=== PATIENT | male | born 1950 | race Caucasian/White ===

== ENCOUNTER 2018-02-24 19:23 | Observation (INO) | payer MEDICARE, BC ==
[2018-02-24] MEDS ORDERED: KETOROLAC 30 MG/ML 1 ML VIAL IM STA (19:58)
[2018-02-24] MEDS ORDERED: DIAZEPAM 5 MG/ML 2 ML INJ IM ONE (19:58)
--- NOTE | 2018-02-24 20:04 | ED ---
Back Pain HPI - General Chief Complaint: Back Pain/Injury Stated Complaint: Back pain Time Seen by Provider: 02/24/18 19:27 Source: patient, EMS Limitations: no limitations - History of Present Illness Initial Comments: 67-year-old male patient presents to the emergency department today for evaluation of increased lower back pain. Patient states that he does have a history of back problems which is usually well-managed with his Ultram. Patient states that over the last 4-5 days he has had a significant increase in the pain. Patient states that today the pain became so bad that he was unable to move. Patient states with the slightest movement the pain in his back would increase to a point he couldn't stand. Patient states that it was so bad to call EMS to bring him here. Patient states he did get fentanyl in the ambulance which did help somewhat but not much. Patient denies any radiation of the pain down his legs. Denies any numbness or tingling to his lower extremities. Denies any saddle anesthesia. He denies any loss of bowel or bladder control however he does have a manual sphincter for urination. States that he has had some hematuria today but this does occur occasionally due to his prostate cancer. He denies any known injury to the back. Denies any event that caused an increase in his back pain. States he did see his primary care physician a few days ago did give him an injection of Toradol and a muscle relaxer which improved the pain for a short time. States that his primary care did calm and a prescription of Robaxin but has not arrived yet. Patient denies any recent rash, fever, chills, shortness breath, chest pain, abdominal pain, nausea, vomiting, diarrhea, constipation, dizziness, weakness, hematuria, dysuria, urinary urgency, urinary frequency, headache, visual changes, or any other complaints. - Related Data Home Medications Medication Instructions Recorded Confirmed Clopidogrel [Plavix] 75 mg PO DAILY 10/01/14 02/24/18 Loratadine [Claritin] 10 mg PO DAILY 10/01/14 02/24/18 Pantoprazole Sodium [Protonix] 40 mg PO DAILY 10/01/14 02/24/18 Aspirin 81 mg PO DAILY 05/06/16 02/24/18 Atenolol/Chlorthalidone 1 tab PO DAILY 05/06/16 02/24/18 [Atenolol-Chlorthalidone 50-25] Atorvastatin [Lipitor] 40 mg PO DAILY 02/24/18 02/24/18 Cholecalciferol [Vitamin D3] 1,000 unit PO DAILY 02/24/18 02/24/18 Docusate [Colace] 100 mg PO BID 02/24/18 02/24/18 Escitalopram [Lexapro] 20 mg PO DAILY 02/24/18 02/24/18 Triamterene/Hydrochlorothiazid 1 tab PO DAILY 02/24/18 02/24/18 [Triamterene-Hctz 37.5-25 mg Tb] Allergies Allergy/AdvReac Type Severity Reaction Status Date / Time codeine Allergy Nausea Verified 02/24/18 20:17 walnuts Allergy Unknown Uncoded 02/24/18 19:30 Review of Systems ROS Statement: Those systems with pertinent positive or pertinent negative responses have been documented in the HPI. ROS Other: All systems not noted in ROS Statement are negative. Past Medical History Past Medical History: Cancer, CVA/TIA, GERD/Reflux, Hyperlipidemia, Hypertension , Myocardial Infarction (non Q-wave) Additional Past Medical History / Comment(s): prostate, History of Any Multi-Drug Resistant Organisms: None Reported Past Surgical History: Back Surgery, Prostate Surgery Additional Past Surgical History / Comment(s): urinary schincter replacemnt Past Psychological History: No Psychological Hx Reported Smoking Status: Never smoker Past Alcohol Use History: None Reported - Past Family History Mother History Unknown: Yes Additional Family Medical History / Comment(s): Patient adopted - unknown history from biological mother Father History Unknown: Yes Additional Family Medical History / Comment(s): Patient adopted - unknown history from biological father Sister(s) History Unknown: Yes Additional Family Medical History / Comment(s): Adopted sister - not biological relation Daughter(s) Additional Family Medical History / Comment(s): Daughter had pericarditis - had to have oepn heart surgery at 26 and have all valves replaced due to sepsis. Full health now General Exam Limitations: no limitations General appearance: alert, in no apparent distress, other (This is a well- developed, well-nourished adult male patient in no acute distress. Vital signs upon presentation are temperature 97.9F, pulse 63, respirations 16, blood pressure 138/60, pulse ox 99% on room air.) Eye exam: Present: normal appearance, PERRL, EOMI. Absent: scleral icterus, conjunctival injection, periorbital swelling ENT exam: Present: normal exam, normal oropharynx, mucous membranes moist Respiratory exam: Present: normal lung sounds bilaterally. Absent: respiratory distress, wheezes, rales, rhonchi, stridor Cardiovascular Exam: Present: regular rate, normal rhythm, normal heart sounds. Absent: systolic murmur, diastolic murmur, rubs, gallop, clicks GI/Abdominal exam: Present: soft, normal bowel sounds. Absent: distended, tenderness, guarding, rebound, rigid Neurological exam: Present: alert, oriented X3, CN II-XII intact Psychiatric exam: Present: normal affect, normal mood Skin exam: Present: warm, dry, intact, normal color. Absent: rash Course Vital Signs 02/24/18 02/24/18 02/24/18 19:25 21:41 23:16 Temperature 97.9 F Pulse Rate 63 55 L 55 L Pulse Rate [ Right Supine Radial] Respiratory 16 16 16 Rate Blood Pressure 138/68 113/63 109/64 Blood Pressure [Left Arm] O2 Sat by Pulse 99 98 96 Oximetry 02/25/18 02/25/18 00:00 00:21 Temperature 97.8 F Pulse Rate Pulse Rate [ 60 79 Right Supine Radial] Respiratory 14 17 Rate Blood Pressure Blood Pressure 112/60 [Left Arm] O2 Sat by Pulse 92 L Oximetry Medical Decision Making - Medical Decision Making 67 old male patient presented to the emergency department today for complaints of increased low back pain. Prior to arrival patient was having difficulty moving at all due to a sudden increase in pain with any type of movement. Physical examination was relatively unremarkable. Patient had no vertebral tenderness no paraspinal tenderness. Urinalysis is obtained and showed no evidence of blood. Patient's pain was all across the lower back not center anyone flank. CT of the lumbar spine was obtained and showed some mild degenerative changes but no significant findings. There was concern for possibly left enlarged ureter however patient's urinalysis is not reflect this and this could be physiologic. Patient was given medication here in the emergency department was feeling better. Once he got up to start getting dressed and moved around a little bit his back started to hurt again and again had difficulty with mobility. At this time patient does not feel comfortable being discharged home. We will admit to the hospital for intractable low back pain. We will consult physical therapy and provide pain management. He'll be admitted to Dr. Luis. - Lab Data Result diagrams: 02/24/18 22:56 02/24/18 22:56 Lab Results 02/24/18 02/24/18 02/24/18 Range/Units 20:16 22:56 22:56 WBC 8.8 (3.8-10.6) k/uL RBC 4.31 (4.30-5.90) m/uL Hgb 13.6 (13.0-17.5) gm/dL Hct 39.7 (39.0-53.0) % MCV 91.9 (80.0-100.0) fL MCH 31.5 (25.0-35.0) pg MCHC 34.3 (31.0-37.0) g/dL RDW 12.8 (11.5-15.5) % Plt Count 243 (150-450) k/uL Neutrophils % 76 % Lymphocytes % 16 % Monocytes % 6 % Eosinophils % 0 % Basophils % 0 % Neutrophils # 6.6 (1.3-7.7) k/uL Lymphocytes # 1.4 (1.0-4.8) k/uL Monocytes # 0.6 (0-1.0) k/uL Eosinophils # 0.0 (0-0.7) k/uL Basophils # 0.0 (0-0.2) k/uL Sodium 141 (137-145) mmol/L Potassium 3.7 (3.5-5.1) mmol/L Chloride 97 L (98-107) mmol/L Carbon Dioxide 29 (22-30) mmol/L Anion Gap 15 mmol/L BUN 40 H (9-20) mg/dL Creatinine 1.20 (0.66-1.25) mg/dL Est GFR (CKD-EPI)AfAm 73 (>60 ml/min/1.73 sqM) Est GFR (CKD-EPI)NonAf 63 (>60 ml/min/1.73 sqM) Glucose 137 H (74-99) mg/dL Calcium 9.8 (8.4-10.2) mg/dL Total Bilirubin 0.2 (0.2-1.3) mg/dL AST 20 (17-59) U/L ALT 35 (21-72) U/L Alkaline Phosphatase 85 (38-126) U/L Total Protein 6.6 (6.3-8.2) g/dL Albumin 4.4 (3.5-5.0) g/dL Urine Color Yellow Urine Appearance Clear (Clear) Urine pH 7.0 (5.0-8.0) Ur Specific [place] 1.022 (1.001-1.035) Urine Protein Negative (Negative) Urine Glucose (UA) Negative (Negative) Urine Ketones Negative (Negative) Urine Blood Negative (Negative) Urine Nitrite Negative (Negative) Urine Bilirubin Negative (Negative) Urine Urobilinogen <2.0 (<2.0) mg/dL Ur Leukocyte Esterase Negative (Negative) - Radiology Data Radiology results: report reviewed, image reviewed CT of the lumbar spine was performed without contrast. Report was reviewed in its entirety. Impression by Dr. Corado shows mild lateral recess stenosis L4 to 5. Mild multilevel spondylosis. No fracture seen. The proximal left ureter is slightly increased compared to old computed tomography scan of 2013. Is not clear if there is an obstruction since entire ureter is not included in the mid left ureter is not dilated. Disposition Clinical Impression: Intractable back pain Disposition: ADMITTED IP TO [facility] Condition: Serious Decision to Admit Reason: Admit from EC Decision Date: 02/24/18 Decision Time: 22:58
[2018-02-24 20:28] LABS: Appearance,Urine Clear (Clear); Bilirubin,Urine Negative (Negative); Blood,Urine Negative (Negative); Color,Urine Yellow; Glucose,Urine (UA) Negative (Negative); Ketones,Urine Negative (Negative); Leukocyte Esterase,Urine Negative (Negative); Nitrite,Urine Negative (Negative); Protein,Urine Negative (Negative); Specific Gravity,Urine 1.022 (1.001-1.035); Urobilinogen,Urine <2.0 mg/dL (<2.0)
--- NOTE | 2018-02-24 20:42 | CT ---
EXAMINATION TYPE: CT lumbar spine wo con DATE OF EXAM: 02/24/2018 8:33 PM COMPARISON: NONE HISTORY: Low back pain. No known injury. CT DLP: 1279.6 mGycm Automated exposure control for dose reduction was used. Unenhanced CT of the lumbar spine was performed. Bone and soft tissue window settings are submitted as well as coronal and sagittal reconstructions. Lumbar vertebra have fairly normal alignment. There is narrowing of disc spaces throughout the lumbar spine and more noticeable at L5-S1. There is no lumbar paraspinal mass. There is no compression frac ture. There is anterior spurring of the endplates throughout the lower thoracic and entire lumbar spi ne. The posterior elements are intact. There is some facet arthropathy at L4-5 and mild lateral reces s stenosis. Sacroiliac joints are intact. IMPRESSION: Mild lateral recess stenosis at L4-5. Mild multilevel spondylosis. No fracture seen. The proximal left ureter is slightly increased compared to old CT scan of 03/12/2014. It is not clear if there is an obstruction since the entire ureter is not included and the mid left ureter is not dil ated.
[2018-02-24] MEDS ORDERED: MORPHINE SULFATE 2 MG/ML SYRINGE IM STA (21:13)
[2018-02-24] MEDS ORDERED: DIAZEPAM 5 MG/ML 2 ML INJ IVP PRN (22:38)
[2018-02-24] MEDS ORDERED: methylPREDNISolone SOD SUCCI 125 MG/2 ML VIAL IV STA (22:39)
[2018-02-24] MEDS ORDERED: NALOXONE 0.4 MG/ML 1 ML VIAL IV PRN (22:55)
[2018-02-24 23:08] LABS: Basophils % (A) 0 %; Eosinophils % (A) 0 %; HCT 39.7 % (39.0-53.0); HGB 13.6 gm/dL (13.0-17.5); Lymphocytes # (A) 1.4 k/uL (1.0-4.8); Lymphocytes % (A) 16 %; MCH 31.5 pg (25.0-35.0); MCHC 34.3 g/dL (31.0-37.0); MCV 91.9 fL (80.0-100.0); Mean Platelet Volume 7.5; Monocytes # (A) 0.6 k/uL (0-1.0); Monocytes % (A) 6 %; Neutrophils # (A) 6.6 k/uL (1.3-7.7); Neutrophils % (A) 76 %; Platelet Count 243 k/uL (150-450); RBC 4.31 m/uL (4.30-5.90); RDW 12.8 % (11.5-15.5); WBC 8.8 k/uL (3.8-10.6)
[2018-02-24 23:18] LABS: Albumin 4.4 g/dL (3.5-5.0); Calcium 9.8 mg/dL (8.4-10.2); Potassium 3.7 mmol/L (3.5-5.1); Total Bilirubin 0.2 mg/dL (0.2-1.3); Total Protein 6.6 g/dL (6.3-8.2)
[2018-02-25] MEDS ORDERED: KETOROLAC 30 MG/ML 1 ML VIAL IVP SCH
[2018-02-25 01:39] VITALS: BMI 29.4
[2018-02-25] MEDS: MORPHINE SULFATE 2 MG/ML SYRINGE IVP PRN ×2 (09:12→14:49)
[2018-02-25] MEDS ORDERED: CHLORTHALIDONE 25 MG TAB PO SCH (11:45)
[2018-02-25] MEDS ORDERED: ASPIRIN 81 MG PO SCH (12:00)
[2018-02-25] MEDS: PANTOPRAZOLE 40 MG TABLET PO SCH (12:15)
[2018-02-25] MEDS: ESCITALOPRAM 20 MG TAB PO SCH (12:15)
[2018-02-25] MEDS: ATENOLOL 50 MG TAB PO SCH (12:16)
[2018-02-25] MEDS: CLOPIDOGREL 75 MG TAB PO SCH (12:16)
[2018-02-25] MEDS: TRIAMTERENE-HCTZ 37.5-25MG 1 EACH TAB PO SCH (12:16)
[2018-02-25] MEDS: LORATADINE 10 MG TAB PO SCH (12:17)
[2018-02-25] MEDS ORDERED: HYDROcodone/APAP 5-325MG 1 EACH TAB PO PRN (16:22)
--- NOTE | 2018-02-25 16:27 | P.CNOR ---
History of Present Illness - [facility] Consult date: 02/25/18 Consult reason: low back pain History of present illness: The patient is a 67-year-old male who presented to the hospital yesterday with intractable low back pain. He has a history of prostate cancer, [place], stroke, hyperlipidemia, and hypertension. He states the back pain started approximately 5 days ago and he saw his primary care physician who gave him Toradol and the pain seemed to improve. Until yesterday, he states that he was trying to stand up from the chair and his back locked up and he is unable to move. He was transported to the hospital via EMS. He was given IV steroids and pain medication in the ER and still was unable to ambulate. He was admitted to observation for pain control and further workup. A lumbar CT was obtained. The patient does have a history of prostate cancer that was diagnosed 2 years ago. He underwent surgery, radiation treatments, and hormone therapy by [facility]. He is closely being monitored by [facility]. The patient takes Ultram at home on a regular basis. Today, he denies bilateral leg weakness, numbness or tingling down his legs. He denies fever, chills, rigors, shortness of breath and chest pain. Review of Systems Constitutional: Denies chills, Denies fatigue, Denies fever Cardiovascular: Denies chest pain, Denies shortness of breath Respiratory: Denies cough Musculoskeletal: Reports low back pain Past Medical History Past Medical History: Cancer, CVA/TIA, GERD/Reflux, Hyperlipidemia, Hypertension , Myocardial Infarction (non Q-wave) Additional Past Medical History / Comment(s): prostate, Last Myocardial Infarction Date:: 1993 History of Any Multi-Drug Resistant Organisms: None Reported Past Surgical History: Back Surgery, Prostate Surgery Additional Past Surgical History / Comment(s): urinary schincter replacemnt Past Anesthesia/Blood Transfusion Reactions: No Reported Reaction Past Psychological History: No Psychological Hx Reported Smoking Status: Never smoker Past Alcohol Use History: None Reported - Past Family History Mother History Unknown: Yes Additional Family Medical History / Comment(s): Patient adopted - unknown history from biological mother Father History Unknown: Yes Additional Family Medical History / Comment(s): Patient adopted - unknown history from biological father Sister(s) History Unknown: Yes Additional Family Medical History / Comment(s): Adopted sister - not biological relation Daughter(s) Additional Family Medical History / Comment(s): Daughter had pericarditis - had to have oepn heart surgery at 26 and have all valves replaced due to sepsis. Full health now Medications and Allergies Home Medications Medication Instructions Recorded Confirmed Type Clopidogrel [Plavix] 75 mg PO DAILY 10/01/14 02/24/18 History Loratadine [Claritin] 10 mg PO DAILY 10/01/14 02/24/18 History Pantoprazole Sodium [Protonix] 40 mg PO DAILY 10/01/14 02/24/18 History Aspirin 81 mg PO DAILY 05/06/16 02/24/18 History Atenolol/Chlorthalidone 1 tab PO DAILY 05/06/16 02/24/18 History [Atenolol-Chlorthalidone 50-25] Atorvastatin [Lipitor] 40 mg PO DAILY 02/24/18 02/24/18 History Cholecalciferol [Vitamin D3] 1,000 unit PO DAILY 02/24/18 02/24/18 History Docusate [Colace] 100 mg PO BID 02/24/18 02/24/18 History Escitalopram [Lexapro] 20 mg PO DAILY 02/24/18 02/24/18 History Triamterene/Hydrochlorothiazid 1 tab PO DAILY 02/24/18 02/24/18 History [Triamterene-Hctz 37.5-25 mg Tb] Allergies Allergy/AdvReac Type Severity Reaction Status Date / Time codeine Allergy Nausea Verified 02/24/18 20:17 walnuts Allergy Severe Anaphylaxis Uncoded 02/25/18 03:41 Physical Examination The patient was seen and evaluated at bedside today. He is alert and oriented x3. Pain is reasonably controlled. Abdomen is soft and nontender. Dorsiflexion , plantarflexion, extensor hallucis longus positive sustaining bilaterally. Positive straight leg raise on the left. Pain to palpation to the left lower back along the L4-L5-S1 level with radiation into the left buttock. Calves are soft and nontender. Non-tender hips and knees bilaterally. The patient has full foot and ankle motion without difficulty. Patient's bilateral lower extremities are neurovascular intact. Results - Labs Labs: Abnormal Lab Results - Last 24 Hours (Table) 02/24/18 Range/Units 22:56 Chloride 97 L (98-107) mmol/L BUN 40 H (9-20) mg/dL Glucose 137 H (74-99) mg/dL H & H 02/24/18 Range/Units 22:56 Hgb 13.6 (13.0-17.5) gm/dL Hct 39.7 (39.0-53.0) % Result Diagrams: 02/24/18 22:56 02/24/18 22:56 - Diagnostic results CT Scan - lumbar: image reviewed (CT obtained 02/24/2018 reveal mild spondylosis throughout the lumbar spine (more so in the L5-S1 area) and mild stenosis at L4- 5) Assessment and Plan (1) Intractable back pain Current Visit: Yes Status: Acute Code(s): M54.9 - DORSALGIA, UNSPECIFIED SNOMED Code(s): 774906457 (2) Spondylosis of lumbar spine Current Visit: Yes Status: Acute Code(s): M47.816 - SPONDYLOSIS W/O MYELOPATHY OR RADICULOPATHY, LUMBAR REGION SNOMED Code(s): 439977418 Plan: The clinical and CT findings were discussed with the patient the patient's at the bedside. We are recommending IV Solu-Medrol and pain control. Continue physical therapy as tolerated. If the patient fails to improve, an MRI may be warranted. The patient may be discharged home once pain is controlled and he is able to ambulate safely. He may follow up with Dr. Curry on an outpatient basis as needed.
[2018-02-25] MEDS: methylPREDNISolone SOD SUCCI 125 MG/2 ML VIAL IV SCH (18:16)
[2018-02-25] MEDS ORDERED: CALCIUM CARBONATE 500 MG CHEWABLE PO PRN (18:38)
[2018-02-25] MEDS ORDERED: ONDANSETRON 4 MG/2 ML VIAL IVP PRN (18:38)
[2018-02-25] MEDS ORDERED: TEMAZEPAM 15 MG CAP PO PRN (18:38)
[2018-02-25] MEDS ORDERED: ALPRAZolam 0.25 MG TAB PO PRN (18:38)
[2018-02-25 19:39] VITALS: RESP 16; TEMP 97.8
--- NOTE | 2018-02-25 19:39 | HP ---
HISTORY AND PHYSICAL DATE OF ADMISSION: 02/24/2018 DATE OF SERVICE: 02/25/2018 PRESENTING COMPLAINT: Low back pain. HISTORY OF PRESENTING COMPLAINT: This is a pleasant 67-year-old patient of Dr. Flores whose chronic stable medical conditions include GERD, hypertension, hyperlipidemia, previous [place]. The patient has had low back pain for a long time and does use Ultram. Five days ago he started having increasing pain in the lumbar area, first to one side, then it became more across. There was no change in the bowel or urine. There was no fever, chills. No acute injury. Patient started having episodes where he would stand up and he felt as if he was freezing in terms of bending or moving and decided to come down to the ER. The patient did have a lumbar CT scan. Dr. Curry was consulted earlier this morning. Patient was started on IV Solu-Medrol. REVIEW OF SYSTEMS: CONSTITUTIONAL: None. HEENT: None. RESPIRATORY: None. CARDIOVASCULAR: None. GASTROINTESTINAL: Heartburn. GENITOURINARY: None. MUSCULOSKELETAL: As above. DERMATOLOGICAL: None. HEMATOLOGICAL: None. LYMPHATICS: None. PSYCHIATRY: None. NEUROLOGICAL: None. PAST MEDICAL HISTORY: 1. GERD. 2. Hyperlipidemia. 3. Hypertension. 4. Non-Q-wave [place]. 5. Prostate cancer, treated with radiation and surgery. 6. . PAST SURGICAL HISTORY: 1. Back surgery. 2. Prostate surgery. 3. Urinary sphincter replacement. SOCIAL HISTORY: No alcohol or smoking. 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 FAMILY HISTORY: Patient is adopted. HOME MEDICATIONS: 1. Lexapro 20 mg p.o. daily. 2. Colace 100 mg p.o. b.i.d. 3. Vitamin D3 1000 units p.o. daily. 4. Triamterene/hydrochlorothiazide 37.5/25 one tablet p.o. daily. 5. Protonix 40 mg p.o. daily. 6. Claritin 10 mg p.o. daily. 7. Plavix 75 mg p.o. daily. 8. Lipitor 40 mg p.o. daily. 9. Atenolol chlorthalidone 1 tablet p.o. daily. 10.Aspirin 81 mg p.o. daily. ALLERGIES: 1. CODEINE. 2. WALNUTS. PHYSICAL EXAMINATION: Temperature 97.8, pulse 60, respiration 14, blood pressure 112/68, pulse ox 92% on room air. GENERAL APPEARANCE: Average build. BMI 34. Lying in bed, tired-appearing. EYES: Pupils equal. Conjunctivae normal. HEENT: External appearance of nose and ears normal. Oral cavity normal. NECK: JVD not raised. Mass not palpable. RESPIRATORY: Effort normal. Lungs are clear. CARDIOVASCULAR: First and second sounds normal. No edema. ABDOMEN: Soft, non-tender. Liver and spleen not palpable. LYMPHATIC: No lymph node palpable in neck or axillae. PSYCHIATRY: Alert and oriented x3. Mood and affect normal. NEUROLOGICAL: Pupils equal.. Cranial nerves grossly intact. Power and sensation grossly intact. LOWER EXTREMITIES: Patient able to raise both legs to 45 degrees. Reflexes are symmetrical. There is some tenderness in the lower lumbar spine area. Sensations are grossly preserved. INVESTIGATIONS: White count 8.8, hemoglobin 13.6, potassium 3.7, BUN 40, creatinine 1.20. UA negative. CT scan of the lumbar spine shows some mild lateral recess stenosis at L4-L5 and mild multi-level spondylolysis. ASSESSMENT: 1. This is a patient with chronic lower lumbar spine pain and patient had had prior surgery, now presents with acute pain and feels as if he was frozen up in standing position a few times. This feels more like a radiculopathy/herniated disc, though not obviously seen on CT scan. Patient has no other neuro deficit on examination except for his clinical history. 2. Gastroesophageal reflux disease. 3. Hyperlipidemia. 4. Essential hypertension. 5. Coronary artery disease with prior myocardial infarction. PLAN: Dr. Curry was consulted. Patient was put on IV Solu-Medrol. Will also put the patient on naproxen and baclofen for muscle spasm and go from there. Care was discussed with the patient. Questions were answered. MMODL / IJN: [id number] /
[2018-02-25] MEDS: NAPROXEN 250 MG TAB PO SCH (20:37)
[2018-02-25] MEDS: DOCUSATE 100 MG CAP PO SCH (20:38)
[2018-02-25] MEDS: ENOXAPARIN 40 MG/0.4 ML SYRINGE SQ SCH (20:38)
[2018-02-25] MEDS: BACLOFEN 10 MG TAB PO SCH ×2 (20:38→23:05)
[2018-02-26] MEDS: methylPREDNISolone SOD SUCCI 125 MG/2 ML VIAL IV SCH ×2 (01:29→10:34)
[2018-02-26 08:00] VITALS: BP 105/64; PULSE 57
[2018-02-26] MEDS ORDERED: traMADol 50 MG TAB PO PRN ×2 (08:39)
[2018-02-26] MEDS ORDERED: CHOLECALCIFEROL 1,000 UNIT TAB PO SCH (09:00)
[2018-02-26] MEDS ORDERED: ATORVASTATIN 40 MG TAB PO SCH (09:00)
--- NOTE | 2018-02-26 10:25 | P.PN ---
Subjective Progress Note Date: 02/26/18 Principal diagnosis: Intractable low back pain. The patient is a 67-year-old male who we've been following for intractable lower back pain. The patient was evaluated at the bedside today. The patient seems much more comfortable and states his pain is better controlled today. He states he is ready for discharge home. No new complaints today. Objective - Vital Signs Vital signs: Vital Signs Temp 97.8 F 02/26/18 07:59 Pulse 57 L 02/26/18 07:59 Resp 16 02/26/18 07:59 BP 105/64 02/26/18 07:59 Pulse Ox 94 L 02/26/18 07:59 Intake & Output 02/25/18 02/26/18 02/26/18 18:59 06:59 18:59 Intake Total 720 2160 Output Total 1200 280 Balance -480 1880 Intake: Oral 720 2160 Output: Urine 1200 280 Other: Voiding Method Urinal Toilet Urinal # Voids 3 # Bowel Movements 0 - Exam The patient is a 67-year-old male who is in no acute distress. Alert and oriented 3. Exam of the lumbar spine reveals no obvious deformity or step- offs noted. Pain to the left lower back with mild paraspinal spasm. Calves are soft and nontender. Good foot and ankle motion bilaterally with EHL intact. Circulatory and neurovascular status is intact. - Labs CBC & Chem 7: 02/24/18 22:56 02/24/18 22:56 Assessment and Plan (1) Intractable back pain Current Visit: Yes Status: Acute Code(s): M54.9 - DORSALGIA, UNSPECIFIED SNOMED Code(s): 510681209 (2) Spondylosis of lumbar spine Current Visit: Yes Status: Acute Code(s): M47.816 - SPONDYLOSIS W/O MYELOPATHY OR RADICULOPATHY, LUMBAR REGION SNOMED Code(s): 936870472 Plan: The clinical and CT findings were discussed with the patient at the bedside. We are recommending IV Solu-Medrol and pain control. Continue physical therapy as tolerated. If the patient fails to improve, an MRI may be warranted. The patient may be discharged home once pain is controlled and he is able to ambulate safely. Prednisone taper was prescribed for discharge. He may follow up with Dr. Curry on an outpatient basis as needed.
[2018-02-26] MEDS: PANTOPRAZOLE 40 MG TABLET PO SCH (10:31)
[2018-02-26] MEDS: ATENOLOL 50 MG TAB PO SCH (10:31)
[2018-02-26] MEDS: BACLOFEN 10 MG TAB PO SCH ×2 (10:32→12:37)
[2018-02-26] MEDS: ESCITALOPRAM 20 MG TAB PO SCH (10:32)
[2018-02-26] MEDS: LORATADINE 10 MG TAB PO SCH (10:33)
[2018-02-26] MEDS: NAPROXEN 250 MG TAB PO SCH (10:33)
[2018-02-26] MEDS: CLOPIDOGREL 75 MG TAB PO SCH (10:33)
[2018-02-26] MEDS: DOCUSATE 100 MG CAP PO SCH (10:33)
[2018-02-26] MEDS: TRIAMTERENE-HCTZ 37.5-25MG 1 EACH TAB PO SCH (10:33)
[2018-02-26] MEDS: ENOXAPARIN 40 MG/0.4 ML SYRINGE SQ SCH (10:34)
--- NOTE | 2018-02-26 19:49 | DS ---
DISCHARGE SUMMARY DATE OF ADMISSION: February 24, 2018. DATE OF DISCHARGE: February 26, 2018. FINAL DIAGNOSES: 1. Acute on chronic lumbar osteoarthritis with possible radiculopathy. 2. Gastroesophageal reflux disease. 3. Hyperlipidemia. 4. Essential hypertension. 5. Coronary artery disease with prior history of myocardial infarction. HOSPITAL COURSE: This patient with chronic lumbar pain who does take Ultram, presented with acute pain and was freezing in the upright position. The patient was given steroids, NSAIDs, antispasmodic. Doing better and able to walk much better. The patient is seen by Dr. Curry from Orthopedics. CT scan of the spine showed nonspecific findings. Today, care was discussed with the patient. Questions were answered. The patient tolerating a diet. Pain is much improved. PHYSICAL EXAMINATION: On examination, lungs clear. Cardiovascular: 1st and 2nd sounds normal. Minimal lumbar tenderness. DISCHARGE MEDICATIONS: 1. Plavix 75 mg a day. 2. Claritin 10 mg a day. 3. Protonix 40 mg a day. 4. Aspirin 81 mg a day. 5. Atenolol chlorthalidone 50/25 1 tab a day. 6. Lipitor 40 mg p.o. daily. 7. Vitamin D3 1000 units p.o. daily. 8. Colace 100 mg p.o. b.i.d. 9. Lexapro 20 mg p.o. daily. 10.Triamterene hydrochlorothiazide 37.5/25 1 tab p.o. daily. 11.Baclofen 5 mg p.o. t.i.d. 12.Naproxen 250 mg p.o. t.i.d. 21 tablets. 13.Prednisone taper. Follow up with Dr. Curry as needed. Follow with Dr. Scott Flores in [place] in 1 week. The patient may use ice pack and a K-pad. Copy to Dr. Flores. MMODL / IJN: [id number] /
== END 2018-02-26 13:45 | disposition home or self-care (01) ==
LOC: EC 19:23 → 3SUR 22:58
PROVIDERS: ADMIT Hospitalist; ATTEND Hospitalist
DX: G89.29 Other chronic pain (principal); M47.816 Spondylosis without myelopathy or radiculopathy, lumbar region; K21.9 Gastro-esophageal reflux disease without esophagitis; E78.5 Hyperlipidemia, unspecified; I10 Essential (primary) hypertension; I25.10 Atherosclerotic heart disease of native coronary artery without angina pectoris; I25.2 Old myocardial infarction; Z85.46 Personal history of malignant neoplasm of prostate; Z92.3 Personal history of irradiation; Z79.02 Long term (current) use of antithrombotics/antiplatelets; Z79.82 Long term (current) use of aspirin; Z79.899 Other long term (current) drug therapy; Z86.73 Personal history of transient ischemic attack (TIA), and cerebral infarction without residual deficits
CPT/HCPCS: 96376 ×2; 96372 ×3; 96375; 96374; 99285; 36415; 97161; 80053; 85025; 81003; 72131; G0378 ×3; J2310; J2930 ×3; J3360 ×2; J1650 ×2; J1885; J2270 ×2

== ENCOUNTER → 2020-01-31 | Outpatient (CLI) | payer MEDICARE, BC ==
--- NOTE | 2020-02-02 08:13 | MM ---
Reason for exam: clinical finding. History: Patient has history of other cancer at age 64. Physical Findings: Nurse did not find any significant physical abnormalities on exam. MG 3D Diag Mammo W/Cad RALF Bilateral CC and MLO view(s) were taken. There are scattered fibroglandular densities. Benign calcifications consistent with gynecomastia. These results were verbally communicated with the patient and result sheet given to the patient on 01/31/20. ASSESSMENT: Benign, BI-RAD 2 RECOMMENDATION: Clinical management.
--- NOTE | 2020-02-02 08:14 | USB ---
Reason for exam: clinical finding. History: Patient has history of other cancer at age 64. US Breast BILAT Right limited breast ultrasound including focal area of concern, retroareolar and axilla demonstrates no cystic or solid lesion seen. Left limited breast ultrasound including focal area of concern, retroareolar and axilla demonstrates no cystic or solid lesion seen. These results were verbally communicated with the patient and result sheet given to the patient on 01/31/20. ASSESSMENT: Benign, BI-RAD 2 RECOMMENDATION: Clinical management of both breasts. Manage patient on a clinical basis.
== END | disposition home or self-care (01) ==
LOC: RADMAMWWP 09:34
PROVIDERS: ATTEND Family Medicine
DX: N62 Hypertrophy of breast (principal)
CPT/HCPCS: 77066; 76641; G0279; 77062